=== PATIENT | female | born 1995 | race Caucasian/White ===

== ENCOUNTER 2019-10-21 12:09 | Emergency (ER) | payer OTHER ==
--- OUTSIDE RECORDS SUMMARY | 2019-10-21 12:16 | XMS REPORT | Continuity of Care Document ---
:1995 External Reference #:[id number] Author Name Heena Page NP (transmitted by agent of provider Aury Austin) Address [address], [place] [address] Care Team Providers Name Role Phone Other Physician Practices Care Team Information Mold Technician Unavailable Problems Description No Information Available Social History Type Date Description Comments Sex Unknown Tobacco Use Start: Unknown Never Smoked Cigarettes ETOH Use Denies alcohol use Recreational Drug Use Denies Drug Use Tobacco Use Start: Unknown Patient has never smoked Smoking Status Reviewed: 09/28/19 Patient has never smoked Exercise Type/Frequency Gentle Yoga Daily for 20 minutes Exercise Type/Frequency Qigong Once per week for 20 minutes Exercise Type/Frequency Walking Periodically depending on weather Allergies, Adverse Reactions, Alerts Active Allergies Reaction Severity Comments Date Sulfa Drugs Hives 07/03/2019 Kava Root "Severe Drowsiness" per pt 07/03/2019 Gluten Abdominal pain, Nasal congestion, 07/03/2019 Fatigue, Indigestion Dairy Abdominal pain, Fatigue, Indigestion 07/03/2019 Medications Active Medications SIG Qnty Indications Ordering Provider Date Rizatriptan Benzoate 1 by mouth as Unknown needed for 10mg Tablets headache may repeat once in 2 hours max 2 days a week Ibuprofen as needed Unknown 200mg Tablets Sunmed CBD 1000 mg/0.5 ml - Unknown takes 1 ml 3-5 times by mouth per day Nature's Truth Take one capsule Unknown Turmeric 1600 MG by mouth daily Ferrous Sulfate Iron 1 by mouth three Unknown times a day 200(65Fe) mg Tablets Vitamin D3 Serum 1000 Take 1000 iu daily Unknown Iu Host Defense Mushroom Take 1 ml by mouth Unknown - My Community daily Extract Vitamin C ER 1 by mouth every Unknown 500mg day Capsules ER [place] daily Unknown Passion daily Unknown Flower-Valerian 500-500mg Capsules Catnip With Skull Cap as needed Unknown Niuean Dogwood as needed Unknown History Medications Neomycin Sulfate 1 by mouth twice 28tabs K58.0 Mundo Foreman MD 2018 - Unknown a day 500mg Tablets Xifaxan take one tablet 42tabs K58.0 Mundo Foreman MD 08/17/2019 - Unknown 550mg by mouth three Tablets times a day for 2 weeks Immunizations Description No Information Available Vital Signs Date Vital Result Comment 09/28/2019 9:29am Height 69 inches 5'9" Weight 137.50 lb Heart Rate 84 /min BP Systolic 117 mmHg BP Diastolic 72 mmHg Body Temperature 97.8 F O2 % BldC Oximetry 100 % BMI (Body Mass Index) 20.3 kg/m2 08/26/2019 2:09pm Height 69 inches 5'9" Weight 139.00 lb Heart Rate 71 /min BP Systolic 119 mmHg BP Diastolic 79 mmHg O2 % BldC Oximetry 100 % BMI (Body Mass Index) 20.5 kg/m2 Last Menstrual Period [id number] Results Test Acquired Date Facility Test Result H/L Range Note GC/Chlamydia 08/26/2019 [facility] GCCHL Disclaimer (SEE NOTE) 1 Amplified Rna [address] [place] [address] [phone] Chlamydia trachomatis Daphnie Negative Negative Neisseria gonorrhoeae (GC) Daphnie Negative Negative Celiac Hla 07/28/2019 [facility] Miscellaneous Lab <pending> DQ1/DQ2 6 [place] [address] [phone] Gliadin Igg And 07/28/2019 [facility] Gliadin Iga <pending> Iga Antibody P [address] [place] [address] [phone] Gliadin Igg <pending> Transglutaminase 07/28/2019 [facility] Transglutaminase AB < pending> Iga/Igg 6 [facility] [address] [phone] Thyroid Panel 07/09/2019 [facility] Free T4 (Free <pending> [address] Thyroxine) [place] [address] [phone] Thyroxine <pending> TSH (Thyroid Stim Horm) <pending> Laboratory test finding 07/09/2019 [facility] T3 Total <pending > [address] [place] [address] [phone] T3 Reverse <pending> Laboratory test finding 07/09/2019 [facility] Vitamin B6 < pending> [address] [place] [address] [phone] Zinc Serum <pending> Copper, Serum <pending> Homocysteine <pending> Vitamin B12 And Folate 07/09/2019 [facility] Vitamin B12 < pending> Serum [address] [place] [address] [phone] Folic Acid (Folate) <pending> Laboratory test 07/09/2019 [facility] T3 Free <pending> finding [address] [place] [address] [phone] Laboratory test 07/09/2019 [facility] Homocysteine <pending> finding [address] [place] [address] [phone] Laboratory test 07/09/2019 [facility] Copper, Serum <pending> finding [address] [place] [address] [phone] Ferritin <pending> Laboratory test 07/09/2019 [facility] CRP High Sensitivity < pending> finding [address] [place] [address] [phone] Anti-Thyroid 07/09/2019 [facility] Thyroperoxidase AB <pending> Antibodies [address] [place] [address] [phone] Thyroglobulin AB <pending> 1 As with all diagnostic procedures, the laboratory results obtained should be used in conjunction with other clinical information available to the physician, including confirmation by another method, as applicable. Procedures Description No Information Available Medical Devices Description No Information Available Encounters Type Date Location Provider Dx Diagnosis Office Visit 08/26/2019 [facility] Cassia Lyons, N.P. 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 (general) (routine) w/o abn findings R10.32 Left lower quadrant pain Office Visit 08/17/2019 11:00a [facility] Heena Page, A04.8 Other specified [facility] MOLECULAR SPECTROSCOPIST bacterial intestinal infections R53.83 Other fatigue E78.5 Hyperlipidemia, unspecified K58.0 Irritable bowel syndrome with diarrhea N94.3 Premenstrual tension syndrome Office Visit 07/09/2019 1:00p [facility] Heena Page, R53.83 Other fatigue [facility] MOLECULAR SPECTROSCOPIST R14.0 Abdominal distension (gaseous) G89.4 Chronic pain syndrome K58.2 Mixed irritable bowel syndrome Assessments Date Code Description Provider 09/28/2019 A04.8 Other specified bacterial intestinal Heena Page, MOLECULAR SPECTROSCOPIST infections 09/28/2019 R53.83 Other fatigue Heena Page, DARREN 09/28/2019 E72.12 Methylenetetrahydrofolate reductase deficiency Heena Page, DARREN 09/28/2019 N94.3 Premenstrual tension syndrome Heena Page, DARREN 08/26/2019 Z01.419 Encounter for gynecological examination Cassia Lyons N.P. (general) (routine) without abnormal findings 08/26/2019 R10.32 Left lower quadrant pain Cassia Lyons N.P. 08/17/2019 A04.8 Other specified bacterial intestinal Heena Page NP infections 08/17/2019 R53.83 Other fatigue Heena Page NP 08/17/2019 E78.5 Hyperlipidemia, unspecified Heena Page, DARREN 08/17/2019 K58.0 Irritable bowel syndrome with diarrhea Heena Page, DARREN 08/17/2019 N94.3 Premenstrual tension syndrome Heena Page NP 07/09/2019 R53.83 Other fatigue Heena Page NP 07/09/2019 R14.0 Abdominal distension (gaseous) Heena Page NP 07/09/2019 G89.4 Chronic pain syndrome Heena Page NP 07/09/2019 K58.2 Mixed irritable bowel syndrome Heena Page NP Plan of Treatment Future Appointment(s):11/20/2019 10:00 am - [facility]2019 - Heena Page NPA04.8 Other specified bacterial intestinal infectionsFollow up:Follow up end of Oct for 45 minutesRecommendations:Still waiting for insurance company. If denied again plan for herbal antimicrobial you have the protocol in your wellevate If insurance covers antibiotics - antibiotics are 2 weeks course. recommend:bitter , digestive enzymes, Atrantil with meals, probiotics (these are continued for a few months) Interphase Plus and Lauricidn (these are for one month If you do the GI Synergy - buy big and smallbottle -R53.83 Other fatigueRecommendations: You have decided to hold LDN for now. Plan to possible start in the future Look up OAT Test (Organic acid testing ) - by damntheradio D-Ribose - 5 grams daily Consider other mitochondrial support Daily castor oil packs - liver - 30 days - 30 -60 tvsohxN27.12 Methylenetetrahydrofolate reductase deficiencyRecommendations:You are positive for one copy of the [id number] heterozygous Those with a defective MTHFR gene have an impaired ability to produce the MTHFR enzyme (estimates range from 20%-70% or more). This can make itmore difficult to break down and eliminate not only synthetic folic acid but other substances like heavy metals. Since folic acid can??t be converted into the usable form, it can build up in the body,which can raise levels of homocysteine. High homocysteine levels are associated with a higher risk in cardiovascular disease. This also affects the conversion to glutathione, which the body needs to remove waste and which is a potent antioxidant. - I do think it is worth a trial of methylated B vitamin supplementation and see if you feel better. The type of B vitamins you take is important. Be sure to go for the activated forms of folate, B6, and B12: L-5-MTHF Folate: Methylfolate B6: [id number] (P5P) B12: Methylcobalamine Your homocysteine level is 9.5 ([facility] states <10.4 is normal) - Functional Medicine has an optimal ranger (evidence based) between 4-7. This could bemultifactorial and could be linked to a problem with methylation. Healthy methylation pathways and balanced homocysteine levels protect your DNA. Methylation helps keep good genes turned on and bad genes turned off, but when methylation is impaired, it can trigger an autoimmune response. Your body hasbuilt-in systems to keep homocysteine levels in check ?? namely methylation. However, to have healthy methylation pathways, your body needs beneficial methyl donors ?? B vitamins in particular ?? from the foods you eat, which convert homocysteine to SAMe and glutathione. For this reason, high homocysteine levels can also be a consequence of poor absorption of B vitamins. Strict vegetarians and veganscan also be prone to methylation impairments due to a potential deficiency of vitamin B12. These arejust some of the factors that can raise homocysteine. --- MTHFR is an enzyme that adds a methyl group tofolic acid to make it usable by the body. The MTHFR gene produces this enzyme that is necessary for properly using vitamin B9. This enzyme is also important for converting homocysteine into methionine,which the body needs for proper metabolism and muscle growth and which is needed for glutathione creation . The process of methylation also involves the enzyme from the MTHFR gene, so those with a mutation may have trouble effectively eliminating toxins from the body. The MTHFR gene provides instructions for making an enzyme called methylenetetrahydrofolate reductase. This enzyme plays a role in processing amino acids, the building blocks of proteins. Methylenetetrahydrofolate reductase is important for a chemical reaction involving forms of the vitamin folate (also called vitamin B9). Specifically, this enzyme converts a molecule called 5,10-methylenetetrahydrofolate to a molecule called 5- methyltetrahydrofolate. This reaction is required for the multistep process that converts the amino acid homocysteine to another amino acid, methionine. The body uses methionine to make proteins and other important compounds. Individuals with low activity of the MTHFR enzyme may present with elevated homocysteine levels, which have been associated with inflammation and heart disease, defects, difficult pregnancies, and potentially an impaired ability to detoxify. Nutrient deficiencies in Folate, B6 and B12 have been associated with elevated homocysteine. MTHFR Tips Though it isn??t possible to change a gene, there are things that can be done to minimize the potential for problems or to help avoid problems in children (before and during the mother??s ). The research is still developing on this, but some things that can be helpful are: Focusing on gut health: Especially when the body has impaired ability to usecertain nutrients, it is important to focus on gut health so that the body can absorb the nutrients from food as effectively as possible. Avoid antibacterial soaps, vegetable oils, processed grains andrefined sugars and support gut with fermented foods and homemade broth. Avoiding environmental toxins as much as possible: Those with an MTHFR gene defect have an impaired ability to eliminate toxins. Avoid plastics, chemicals in beauty supplies and cleaning products, and scented candles, which can all release harmful chemicals. Use houseplants and other methods of cleaning our indoor air, and filter drinking and shower water. Not taking anything with Folic Acid: Folic acid is the synthetic form offolate that cannot be used by those with a MTHFR defect and which can be very toxic. Avoid any supplements with folic acid and only take L-MTHF forms, which are the methylated forms that my body can use. Also take a methyl-B12 which is supposed to help the body use L-MTHF. Lots of Leafy Greens: According to Dr. Esteban Garner, dark leafy greens contain the methylated forms of folate that those with a genedefect need. As if we needed more reasons that it is important to consume green veggies?? try to work in green veggies at every meal - at least 3 servings a day. Avoid Processed Foods: Again, as if anyone needed another reason to avoid processed foods?? Many processed foods have synthetic folic acid added. Avoiding things that can block or deplete folate levels: Certain medications, including hormonal contraceptives can interfere with folate levels, and medicines like antacids can interfere with B-12 absorption. Avoiding Heavy Metals: Heavy metals in diet or environment are harder to remove from the body for those with a gene defect Help a Body Out: Since those with a MTHFR defect have an impairedability to eliminate toxins, do things to help support the body in this process, such as: detox baths, sauna use, drinking enough water, dry brushing my skin and exercise (sweating). If you are new to MTHFR and feel overwhelmed like I did, here are some great resources for more reading: Everything on mthfr.net What is MTHFR and why is it significant for your health ? from [facility] What is the MTHFR genetic defect from [facility] Stop the Thyroid Madness on MTHFR This podcast interview with Dr. Esteban Garner from [facility] Genetic Counseling: http:// www.ferregenetics.org/ https://www.health.[place].gov/diseases/cancer/genetics/ genetic_counselors.htmN94.3 Premenstrual tension syndromeRecommendations:Plan to continue tracking cycle Continue Vitex and magnesium Functional Status Description No Information Available Mental Status Description No Information Available Referrals Refer to Reason for Referral Status Appt Date Deborah Hollingsworth M.D. Sent [address] [place] [address] [phone]
--- OUTSIDE RECORDS SUMMARY | 2019-10-21 12:16 | XMS REPORT | Continuity of Care Document ---
:1995 External Reference #:[id number] Author Name Cassia Lyons N.P. (transmitted by agent of provider Aury Austin) Address [address], [place] [address] Care Team Providers Name Role Phone Other Physician Practices Care Team Information Fruit Grader Unavailable Problems Description No Information Available Social History Type Date Description Comments Sex Unknown Tobacco Use Start: Unknown Never Smoked Cigarettes ETOH Use Denies alcohol use Recreational Drug Use Denies Drug Use Tobacco Use Start: Unknown Patient has never smoked Smoking Status Reviewed: 08/26/19 Patient has never smoked Exercise Type/Frequency Gentle [...] Medications SIG Qnty Indications Ordering Provider Date Neomycin Sulfate 1 by mouth twice 28tabs K58.0 Mundo Foreman MD 2018 500mg a day Tablets Xifaxan take one tablet 42tabs K58.0 Mundo Foreman MD 08/17/2019 550mg Tablets by mouth three times a day for 2 weeks Rizatriptan Benzoate 1 by mouth as Unknown needed for 10mg Tablets headache may repeat once in 2 hours max 2 days a week Ibuprofen as needed Unknown 200mg Tablets Sunmed CBD 1000 mg/0.5 ml - Unknown takes 1 ml 3-5 times by mouth per day Nature's Truth Take one capsule Unknown Turmeric 1600 MG by mouth daily Adrena Naeem Cordy Pro 580 mg, Unknown Adrenal Pro 128 mg, Rhodila 122 mg Take one capsule daily Ferrous Sulfate Iron 1 by mouth three Unknown times a day 200(65Fe) mg Tablets Vitamin D3 Serum 1000 Take 1000 iu Unknown Iu daily Host Defense Mushroom Take 1 ml by Unknown - My Community mouth daily Extract Vitamin C ER 1 by mouth every Unknown 500mg day Capsules ER [place] daily Unknown Passion daily Unknown Flower-Valerian 500-500mg Capsules Catnip With Skull Cap as needed Unknown Scottish Dogwood as needed Unknown Immunizations Description No Information Available Vital Signs Date Vital Result Comment 08/26/2019 2:09pm Height 69 inches 5'9" Weight 139.00 lb Heart Rate 71 /min BP Systolic 119 mmHg BP Diastolic 79 mmHg O2 % BldC Oximetry 100 % BMI (Body Mass Index) 20.5 kg/m2 Last Menstrual Period [id number] 08/17/2019 11:02am Height 69 inches 5'9" Weight 139.00 lb Heart Rate 80 /min BP Systolic 113 mmHg BP Diastolic 77 mmHg Body Temperature 97.5 F O2 % BldC Oximetry 100 % BMI (Body Mass Index) 20.5 kg/m2 Results Test Acquired Date Facility Test Result H/L Range Note Celiac Hla 07/28/2019 [facility] Miscellaneous Lab <pending> DQ1/DQ2 6 [place] [address] [phone] Gliadin Igg 07/28/2019 [facility] Gliadin Iga <pending> And Iga [address] [facility] [place] [address] [phone] Gliadin Igg <pending> Transglutaminase 07/28/2019 [facility] Transglutaminase AB < pending> Iga/Igg [address] [facility] [place] [address] [phone] Thyroid Panel 07/09/2019 [facility] Free T4 (Free <pending> [address] Thyroxine) [place] [address] [phone] Thyroxine <pending> TSH (Thyroid Stim Horm) <pending> Laboratory test finding 07/09/2019 [facility] T3 Total <pending > [address] [place] [address] [phone] T3 Reverse <pending> Laboratory test finding 07/09/2019 [facility] Vitamin B6 < pending> [address] [place], [place] [id number] [phone] Zinc Serum <pending> Copper, Serum <pending> Homocysteine <pending> Vitamin B12 And Folate 07/09/2019 [facility] Vitamin B12 < pending> Serum [address] [place] [address] [phone] Folic Acid (Folate) <pending> Laboratory test 07/09/2019 [facility] T3 Free <pending> finding [address] [place] [address] [phone] Laboratory test 07/09/2019 [facility] Homocysteine <pending> finding [address] [place] [address] [phone] Laboratory test 07/09/2019 [facility] Copper, Serum <pending> finding [address] [place] [address] [phone] Ferritin <pending> Laboratory test 07/09/2019 [facility] CRP High Sensitivity < pending> finding [address] [place] [address] [phone] Anti-Thyroid 07/09/2019 [facility] Thyroperoxidase AB <pending> Antibodies [address] [place] [address] [phone] Thyroglobulin AB <pending> Procedures Description No Information Available Medical Devices Description No Information Available Encounters Type Date Location Provider Dx Diagnosis Office Visit 07/09/2019 [facility] Heena Page NP R53.83 Other fatigue 1:00p [facility] R14.0 Abdominal distension (gaseous) G89.4 Chronic pain syndrome K58.2 Mixed irritable bowel syndrome Assessments Date Code Description Provider 08/26/2019 Z01.419 Encounter for gynecological examination Cassia Lyons, N.P. (general) (routine) without abnormal findings 08/26/2019 N83.202 Unspecified ovarian cyst, left side Cassia Lyons, N.P. 08/17/2019 A04.8 Other specified bacterial intestinal Heena Page NP infections 08/17/2019 R53.83 Other fatigue Heena Page NP 08/17/2019 E78.5 Hyperlipidemia, unspecified Heena Page NP 08/17/2019 K58.0 Irritable bowel syndrome with diarrhea Heena Page NP 08/17/2019 N94.3 Premenstrual tension syndrome Heena Page NP 07/09/2019 R53.83 Other fatigue Heena Page NP 07/09/2019 R14.0 Abdominal distension (gaseous) Heena Page NP 07/09/2019 G89.4 Chronic pain syndrome Heena Page NP 07/09/2019 K58.2 Mixed irritable bowel syndrome Heena Page NP Plan of Treatment Future Appointment(s):09/09/2019 4:00 pm - [facility] - Cassia Lyons N.PBentleyZ01.419 Encounter for gynecological examination (general) (routine) without abnormal dfrrrztsI17.202 Unspecified ovarian cyst, left sideComments:For your ongoing left sided abdominal pain, plan to evaluate with a transvaginal ultrasound. Functional Status Description No Information Available Mental Status Description No Information Available Referrals Refer to Reason for Referral Status Appt Date Deborah Hollingsworth M.D. Sent [address] [place] [address] [phone]
[2019-10-21 13:44] VITALS: BP 122/81
--- NOTE | 2019-10-21 14:06 | UC ---
Complaint Female HPI - HPI Summary HPI Summary: 24-year-old male presenting with complaints of UTI symptoms 2 days including pain with urination and blood in the urine this morning. Also notes pelvic discomfort. Does note mild lower back pain. Denies fever and chills. Denies nausea and vomiting. Denies change in BMs. Patient also notes that she has been having hives at night for the past week or so. Patient states the hives resolve in the morning. Denies any new detergents, lotions, other products, foods, or medications. Patient states the hives are on her abdomen and upper extremities mostly. Denies tongue, lip, throat swelling, and difficulty breathing. Patient denies anything like this before. PMHx significant for fibromyalgia with chronic pain. - History Of Current Complaint Chief Complaint: UCGU Stated Complaint: URINARY PAIN,HIVES Hx Obtained From: Patient Hx Last Menstrual Period: 10/06/2019 Pain Intensity: 6 Pain Scale Used: 0-10 Numeric - Allergies/Home Medications Allergies/Adverse Reactions: Allergies Allergy/AdvReac Type Severity Reaction Status Date / Time Sulfa (Sulfonamide Allergy Hives Verified 10/21/19 13:36 Antibiotics) Home Medications: Home Medications Ibuprofen [Advil Luan Strength] 100 mg PO PRN 10/21/19 [History] Rizatriptan Benzoate [Rizatriptan] 10 mg PO PRN 10/21/19 [History] PMH/Surg Hx/FS Hx/Imm Hx - Surgical History Surgical History: None - Social History Alcohol Use: None Substance Use Type: None Smoking Status (MU): Never Smoked Tobacco - Immunization History Most Recent Tetanus Shot: UTD Review of Systems All Other Systems Reviewed And Are Negative: Yes Constitutional: Positive: Negative. Negative: Fever, Chills ENT: Positive: Negative Respiratory: Positive: Negative Cardiovascular: Positive: Negative Gastrointestinal: Positive: Abdominal Pain - pelvic discomfort. Negative: Vomiting, Diarrhea, Nausea Genitourinary: Positive: Dysuria, Hematuria Musculoskeletal: Positive: Arthralgia - lower back pain Physical Exam - Summary Physical Exam Summary: Vital Signs Reviewed: Yes A+Ox3, no distress Eyes: Conjunctiva Clear ENT: Hearing grossly normal Neck: Positive: Supple Respiratory: Positive: No respiratory distress, No accessory muscle use + CTA throughout no w/r Cardiovascular: RRR nl s1, s2 no m/r Abd: soft + BS nt/nd no guarding, no distension, +mild TTP of lower abdomen/ pelvis Musculoskeletal Exam: SHARMA x 4 without difficulty Neurological: Positive: Alert Psychological: Positive: age appropriate behavior Skin: Positive: no rash, no ecchymosis Vital Signs: Initial Vital Signs Temp 99.8 F 10/21/19 13:40 Pulse 84 10/21/19 13:40 Resp 18 10/21/19 13:40 BP 122/81 10/21/19 13:40 Pulse Ox 100 10/21/19 13:40 Lab Results 10/21/19 Range/Units 14:31 POC Urine Color Yellow POC Urine Clarity Clear POC Urine pH 7.0 (5-9) POC Ur Specif [place] 1.010 (1.010-1.030) POC Urine Protein Negative (Negative) POC Ur Glucose (UA) Negative (Negative) POC Urine Ketones Negative (Negative) POC Urine Blood 2+ A (Negative) POC Urine Nitrite Negative (Negative) POC Urine Bilirubin Negative (Negative) POC Urine Urobilinogen 0.2 (Negative) POC U Leukocyte Esteras 2+ A (Negative) Complaint Female Dx - Course Course Of Treatment: UA positive for blood and leuks. History patient Macrobid and instructed to return to the ED with any new or worsening symptoms. Instructed to follow up with PCP if symptoms do not resolve. Instructed to continue his treatment. Discussed urticaria and most common idiopathic etiology. Patient without urticarial rash while here in the urgent care so unable to observe. Gave patient information how to treat symptoms including use of Benadryl Pepcid and hydrocortisone cream for itching. Instructed to follow up with primary care or dermatology if symptoms persist. Instructed to go to ED with any lip, throat, tongue swelling. Patient voiced understanding and agreed with treatment plan. - Differential Dx/Diagnosis Provider Diagnosis: Urticaria, UTI (urinary tract infection) Discharge ED - Sign-Out/Discharge Documenting (check all that apply): Patient Departure All imaging exams completed and their final reports reviewed: No Studies - Discharge Plan Condition: Stable Disposition: HOME Prescriptions: Nitrofurantoin Monohyd/M-Cryst [Macrobid 100 mg Capsule] 100 mg PO BID #14 cap Patient Education Materials: Urticaria (ED), Urinary Tract Infection in Women ( ED) Referrals: [facility] [Outside] - If Needed Additional Instructions: As discussed, take Macrobid for treatment of your UTI. You may also take Azo as needed for symptom relief. Increase your fluid intake. Follow up with your PCP if symptoms do not resolve. Return or go to emergency room with any new or worsening symptoms. It is difficult to know what caused your hives, but you can treat your symptoms. Take benadryl and pepcid before bedtime if that is when your hives are occurring. You may also use over the counter cortisone cream for itching relief. If the rash worsens or does not resolve within a 7 days, follow up with your primary care referral or the ticket taker listed below. If you experience any lip swelling, tongue swelling, or difficulty breathing, go to the emergency room. - Billing Disposition and Condition Condition: STABLE Disposition: Home
== END 2019-10-21 14:52 | disposition home or self-care (01) ==
LOC: UCEAST 12:09
DX: N39.0 Urinary tract infection, site not specified (principal); L50.9 Urticaria, unspecified; R31.9 Hematuria, unspecified; Z88.2 Allergy status to sulfonamides
CPT/HCPCS: 81003; 87086; 99212; G0463